=== PATIENT | male | born 1985 | race Caucasian/White ===

== ENCOUNTER 2018-02-12 22:07 | Emergency (ER) | payer OTHER ==
[~2018-02-12] VITALS: Ht 193 cm; Wt 116.0 kg
[~2018-02-12 22:07] MED LIST: AMLO5TAB22 PO; AMOX400S3 PO; ASPI81TA82 PO; ZITH500T PO
[2018-02-12 22:50] VITALS: BP 145/85; PULSE 84; RESP 20; TEMP 98.4; O2SAT 95
[2018-02-12] MEDS ORDERED: BUPR150CR PO (23:03)
[2018-02-12] MEDS ORDERED: AMLO10TA2 PO (23:03)
[2018-02-12] MEDS ORDERED: CLINDAMYCIN INJ 900 MG in SODIUM CHLORIDE 0.9% INJ 100 ML IV ONE (23:30)
[2018-02-12] MEDS ORDERED: CLINDAMYCIN 900 MG/NS PREMIX 50 ML IV ONE (23:45)
[2018-02-12] MEDS ORDERED: CLINDAMYCIN 900 MG/DEX PREMIX 50 ML IV ONE (23:45)
[2018-02-12] MEDS ORDERED: CLIN150C14 PO (23:46)
--- NOTE | 2018-02-12 23:46 | PD ---
HPI Chief Complaint: Lump, Cyst, Hernia Time Seen by Provider: 23:09 Travel History International Travel<30 days: No Contact w/Intl Traveler<30days: No Traveled to known affect area: No History of Present Illness HPI 32-year-old male arrives with a painful lump on the scalp. It has been there for months. Over the past few days he reports "playing with it" and today it became very red and painful. Pain is constant and severe. Any contact with it makes him much worse. No fever. Pain radiates down the right scalp and behind the right ear. He denies fever. PFSH Past Medical History Anxiety: Yes Depression: Yes Cardiovascular Problems: Yes (HTN) Diminished Hearing: No Hypertension: Yes Immunizations Current: Yes Tetanus Vaccination: Unknown Influenza Vaccination: No ?: Not Social History Alcohol Use: Yes (RARE) Tobacco Use: No Substance Use: No Allergies-Medications (Allergen,Severity, Reaction): Coded Allergies: No Known Allergies (Verified Adverse Reaction, Unknown, 02/12/18) Reported Meds & Prescriptions Reported Meds & Active Scripts Active Reported Wellbutrin SR 12 HR (Bupropion HCl) 150 Mg Tab 150 Mg PO Q12HR Amlodipine (Amlodipine Besylate) 10 Mg Tab 10 Mg PO DAILY Review of Systems Except as stated in HPI: all other systems reviewed are Neg General / Constitutional: No: Fever Physical Exam Narrative GENERAL: 32-year-old male pleasant well-nourished well-developed mild distress secondary to pain Vital Signs Date Time Temp Pulse Resp B/P (MAP) Pulse Ox O2 Delivery O2 Flow Rate FiO2 02/12/18 22:50 98.4 84 20 145/85 (105) 95 SKIN: Warm and dry. HEAD: Atraumatic. Normocephalic. At the vertex of the scalp there is a 3 cm focus of induration tenderness and erythema. There is no fluctuance. I can see no erythema along the right parietal temporal scalp where the patient states it had been erythematous earlier in the day. EYES: Pupils equal and round. No scleral icterus. No injection or drainage. ENT: No nasal bleeding or discharge. Mucous membranes pink and moist. NECK: Trachea midline. No JVD. CARDIOVASCULAR: Regular rate and rhythm. RESPIRATORY: No accessory muscle use. Clear to auscultation. Breath sounds equal bilaterally. GASTROINTESTINAL: Abdomen soft, non-tender, nondistended. Hepatic and splenic margins not palpable. MUSCULOSKELETAL: Extremities without clubbing, cyanosis, or edema. No obvious deformities. NEUROLOGICAL: Awake and alert. No obvious cranial nerve deficits. Motor grossly within normal limits. Five out of 5 muscle strength in the arms and legs. Normal speech. PSYCHIATRIC: Appropriate mood and affect; insight and judgment normal. Data Data Last Documented VS Vital Signs Date Time Temp Pulse Resp B/P (MAP) Pulse Ox O2 Delivery O2 Flow Rate FiO2 02/12/18 22:50 98.4 84 20 145/85 (105) 95 Orders Orders Iv Access Insert/Monitor (02/12/18 23:17) Clindamycin 900 Mg/Ns Premix (Cleocin 90 (02/12/18 23:45) MDM Medical Decision Making Medical Screen Exam Complete: Yes Emergency Medical Condition: Yes Medical Record Reviewed: Yes Differential Diagnosis Infected sebaceous cyst, abscess, cellulitis Narrative Course There is an infectious process involving the skin. Patient will be discharged with clindamycin, specifically return to the ED if there is no marked improvement with in 24 hours. Patient voiced agreement approximately 11:05 PM. Diagnosis Primary Impression: Cellulitis of scalp Referrals: Primary Care Physician call for appointment Med/Other Pt SpecificInfo: Prescription(s) given Scripts Clindamycin (Clindamycin) 150 Mg Cap 450 MG PO Q8HR for Infection for 10 Days, CAP 0 Refills Prov: Sb Kidd MD 02/12/18 Disposition: 01 DISCHARGE HOME Condition: Stable Sb Kidd MD February 12, 2018 23:46
[2018-02-13 01:05] VITALS: BP 149/84
== END 2018-02-13 01:08 | disposition home or self-care (01) ==
LOC: PHED 22:07
DX: L03.811 Cellulitis of head [any part, except face] (principal); F41.8 Other specified anxiety disorders; I10 Essential (primary) hypertension
CPT/HCPCS: 96365